=== PATIENT | female | born 1990 | race Hispanic/Latino ===

== ENCOUNTER 2018-04-09 17:31 | Inpatient (IN) | payer MEDICAID ==
[~2018-04-09] VITALS: Ht 162.6 cm; Wt 75.1 kg
[2018-04-09] MEDS ORDERED: SODIUM CHLORIDE 0.9% 1000ML 2,000 ML IV ONE (17:49)
[2018-04-09] MEDS ORDERED: MEROPENEM 1 GM VIAL ONE (17:49)
[2018-04-09 18:15] LABS: BASOPHILS % (AUTO) 0.2 % (0.0-5.0); EOSINOPHILS % (AUTO) 0.1 % (0.0-8.0); HEMATOCRIT 38.3 % (36-48); LYMPHOCYTES % (AUTO) 11.1 % (21.0-51.0); MEAN CORPUSCULAR HEMOGLOBIN 31.8 pg (27.0-33.0); MEAN CORPUSCULAR HGB CONC 34.6 g/dL (32.0-36.0); MONOCYTES % (AUTO) 11.9 % (3.0-13.0); NEUTROPHILS % (AUTO) 76.7 % (40.0-77.0); PLATELET COUNT (AUTO) 179 K/uL (130-400); RED BLOOD CELL COUNT(AUTO) 4.16 MIL/uL (4.00-5.50); WHITE BLOOD COUNT (AUTO) 14.8 K/uL (4.8-10.8)
[2018-04-09 18:24] LABS: INR 0.99 (0.85-1.15); PARTIAL THROMBOPLASTIN TIME 30.3 SEC (26.3-35.5); PROTHROMBIN TIME 10.4 SEC (9.6-11.6)
[2018-04-09 18:29] LABS: APPEARANCE,URINE Turbid (CLEAR); BILIRUBIN,URINE Negative (NEGATIVE); COLOR,URINE Dark Yellow (YELLOW); GLUCOSE, URINE (UA) Negative (NEGATIVE); KETONES,URINE Trace mg/dL (NEGATIVE); LEUKOCYTE ESTERASE ,URINE Moderate (NEGATIVE); NITRATE,URINE Negative (NEGATIVE); OCCULT BLOOD,URINE Moderate (NEGATIVE); PH,URINE 5.5 (5.0-8.0); PROTEIN,URINE POS 2+ (NEGATIVE)
[2018-04-09 18:41] LABS: ALANINE AMINOTRANSFERASE 20 U/L (12-78); ALBUMIN 3.4 g/dL (3.5-5.0); ASPARTATE AMINOTRANSFERASE 15 U/L (10-37); BILIRUBIN,TOTAL 1.3 mg/dL (0.2-1.0); CARBON DIOXIDE 26 mmol/L (21-32); CHLORIDE 101 mmol/L (101-111); CREATINE KINASE MB < 0.5 ng/mL (0.5-3.6); CREATINE KINASE, TOTAL 52 U/L (21-232); CREATININE 0.9 mg/dL (0.5-1.5); GLOMERULAR FILTR. RATE CALC 79 mL/min (>60); GLUCOSE,RANDOM 114 mg/dL (70-105); MYOGLOBIN 30 ng/mL (10-92); SODIUM SERUM 137 mmol/L (136-145); TOTAL PROTEIN, SERUM 7.6 g/dL (6.0-8.3); TROPONIN I < 0.04 ng/mL (0.00-0.06); UREA NITROGEN, BLOOD 10 mg/dL (7-18)
[2018-04-09 18:44] LABS: POTASSIUM 2.8 mmol/L (3.5-5.1)
[2018-04-09 18:53] LABS: BACTERIA,URINE Moderate /HPF (None Seen); RBC,URINE None Seen /HPF (0-1); SQUAMOUS EPITHELIAL CELL,UR 0-2 /HPF (0-2); WBC,URINE 51-100 /HPF (0-1)
[2018-04-09] MEDS ORDERED: ACETAMINOPHEN EXTRA STRENGTH 500 MG TABLET ONE (19:46)
[2018-04-09] MEDS ORDERED: CEFTRIAXONE SODIUM 1 GM ONE (19:49)
[2018-04-09] MEDS ORDERED: SODIUM CHLORIDE 0.9% 1000ML 1,000 ML IV ONE (20:04)
[2018-04-09] MEDS ORDERED: POTASSIUM BICARB/CIT AC 25 MEQ TABLET.EFF ONE (20:11)
[2018-04-10] VITALS (7 sets, daily range): BP systolic 93–118; BP diastolic 49–72
[2018-04-10] MEDS ORDERED: ONDANSETRON HCL MDV 20ML 2 MG/ML VIAL IV PRN
[2018-04-10] MEDS ORDERED: POTASSIUM CHLORIDE 20MEQ/100ML 100 ML IV PRN
[2018-04-10] MEDS ORDERED: POTASSIUM CHLORIDE 10% ELIXIR 20 MEQ/15 ML UDCUP PO PRN
[2018-04-10] MEDS ORDERED: MORPHINE SULFATE 2 MG/ML 1ML SYG IV PRN
[2018-04-10] MEDS ORDERED: CEFTRIAXONE 1GM/D5W 50ML 50 ML IV SCH
[2018-04-10] MEDS ORDERED: LIDOCAINE HCL-MPF 1% 2ML VIAL IVP PRN
[2018-04-10 05:45] LABS: MEAN CORPUSCULAR HEMOGLOBIN 31.9 pg (27.0-33.0); MEAN CORPUSCULAR HGB CONC 34.9 g/dL (32.0-36.0); MEAN CORPUSCULAR VOLUME 91.5 fL (79-99); PLATELET COUNT (AUTO) 151 K/uL (130-400); RED BLOOD CELL COUNT(AUTO) 3.71 MIL/uL (4.00-5.50)
[2018-04-10 05:54] LABS: CREATININE 0.7 mg/dL (0.5-1.5); POTASSIUM 3.3 mmol/L (3.5-5.1)
[2018-04-10] MEDS: ACETAMINOPHEN 325 MG TAB PO PRN ×3 (05:56→18:35)
[2018-04-10] MEDS: SODIUM CHLORIDE 0.9% 1000ML 1,000 ML IV SCH ×3 (05:57→20:20)
[2018-04-10] MEDS: FAMOTIDINE 20MG TAB 20 MG TAB PO SCH ×2 (08:01→20:16)
[2018-04-10] MEDS: POTASSIUM CHLORIDE 20 MEQ ERTAB PO PRN ×3 (08:02→12:43)
[2018-04-10] MEDS: CEFTRIAXONE SODIUM 1 GM IVP SCH (08:02)
[2018-04-10 10:21] LABS: BASOPHILS % (AUTO) 0.2 % (0.0-5.0); EOSINOPHILS % (AUTO) 0.3 % (0.0-8.0); HEMATOCRIT 34.3 % (36-48); LYMPHOCYTES % (AUTO) 13.5 % (21.0-51.0); MEAN CORPUSCULAR HEMOGLOBIN 31.5 pg (27.0-33.0); MEAN CORPUSCULAR HGB CONC 33.9 g/dL (32.0-36.0); MEAN CORPUSCULAR VOLUME 92.9 fL (79-99); MONOCYTES % (AUTO) 14.4 % (3.0-13.0); NEUTROPHILS % (AUTO) 71.6 % (40.0-77.0); PLATELET COUNT (AUTO) 151 K/uL (130-400); RED BLOOD CELL COUNT(AUTO) 3.69 MIL/uL (4.00-5.50); RED CELL DISTRIBUTION WIDTH 13.2 % (11.0-15.5); WHITE BLOOD COUNT (AUTO) 9.9 K/uL (4.8-10.8)
[2018-04-10] MEDS ORDERED: IOPAMIDOL-370 100 ML VIAL IV ONE (14:58)
[2018-04-11 04:00] VITALS: BP 104/69
[2018-04-11] MEDS: SODIUM CHLORIDE 0.9% 1000ML 1,000 ML IV SCH (05:28)
[2018-04-11] MEDS: ACETAMINOPHEN 325 MG TAB PO PRN ×2 (05:28→18:43)
[2018-04-11 05:47] LABS: HEMATOCRIT 35.3 % (36-48); MEAN CORPUSCULAR HEMOGLOBIN 32.1 pg (27.0-33.0); MEAN CORPUSCULAR HGB CONC 34.8 g/dL (32.0-36.0); MEAN CORPUSCULAR VOLUME 92.1 fL (79-99); PLATELET COUNT (AUTO) 172 K/uL (130-400); RED BLOOD CELL COUNT(AUTO) 3.83 MIL/uL (4.00-5.50); WHITE BLOOD COUNT (AUTO) 7.6 K/uL (4.8-10.8)
[2018-04-11 05:50] LABS: CREATININE 0.8 mg/dL (0.5-1.5); POTASSIUM 3.5 mmol/L (3.5-5.1)
[2018-04-11] MEDS: POTASSIUM CHLORIDE 20 MEQ ERTAB PO PRN ×2 (06:06→08:36)
[2018-04-11 08:21] VITALS: BP 93/53
[2018-04-11] MEDS: CEFTRIAXONE SODIUM 1 GM IVP SCH (08:36)
[2018-04-11] MEDS: FAMOTIDINE 20MG TAB 20 MG TAB PO SCH ×2 (08:36→19:57)
[2018-04-11 12:08] VITALS: BP 100/58
[2018-04-11 16:33] VITALS: BP 99/64
[2018-04-11 19:25] VITALS: BP 99/62
[2018-04-11 23:10] VITALS: BP 105/73
[2018-04-12 03:50] VITALS: BP 99/67
[2018-04-12 05:03] LABS: CREATININE 0.6 mg/dL (0.5-1.5); POTASSIUM 3.8 mmol/L (3.5-5.1)
[2018-04-12 08:02] VITALS: BP 96/59
[2018-04-12] MEDS ORDERED: LEVOFLOXACIN 500 MG/D5W 100 ML 100 ML IV SCH (09:00)
[2018-04-12] MEDS ORDERED: ENOXAPARIN SODIUM 40 MG/0.4 ML SYRINGE SQ SCH (09:00)
[2018-04-12] MEDS: FAMOTIDINE 20MG TAB 20 MG TAB PO SCH (09:03)
[2018-04-12] MEDS ORDERED: LEVO500T2 PO (09:43)
== END 2018-04-12 12:01 | disposition home or self-care (01) | DRG 720 ==
LOC: EDH 17:31 → OBSVTOIN 17:32 → EDHIP 17:32 → 4AH 04-10 01:17
PROVIDERS: ADMIT Internal Medicine; ATTEND Internal Medicine
DX: A41.9 Sepsis, unspecified organism (principal); N31.9 Neuromuscular dysfunction of bladder, unspecified; E87.6 Hypokalemia; N39.0 Urinary tract infection, site not specified; R19.7 Diarrhea, unspecified; Q05.9 Spina bifida, unspecified; B96.1 Klebsiella pneumoniae [K. pneumoniae] as the cause of diseases classified elsewhere; B96.89 Other specified bacterial agents as the cause of diseases classified elsewhere
CPT/HCPCS: 36415; 71045; 71275; 74176; 80048; 80053; 81001; 81025; 82550; 82553; 83605; 83874; 84484; 85025; 85027; 85610; 85730; 87040; 87088; 87186; 93005; A4218; J0696; J1650; J1956; J2185; J7030; Q9967

== ENCOUNTER 2019-12-06 23:19 | Emergency (ER) | payer MEDICAID ==
[~2019-12-06 23:19] MED LIST: LEVO500T2 PO
[2019-12-06] MEDS ORDERED: ACETAMINOPHEN EXTRA STRENGTH 500 MG TABLET ONE (23:58)
[2019-12-06] MEDS ORDERED: ONDANSETRON HCL 4 MG/2 ML VIAL ONE (23:58)
[2019-12-06] MEDS ORDERED: SODIUM CHLORIDE 0.9% 1000ML 1,000 ML IV ONE (23:58)
[2019-12-07 00:13] LABS: APPEARANCE,URINE Clear (CLEAR); BILIRUBIN,URINE Negative (NEGATIVE); COLOR,URINE Yellow (YELLOW); GLUCOSE, URINE (UA) Negative (NEGATIVE); KETONES,URINE Trace mg/dL (NEGATIVE); LEUKOCYTE ESTERASE ,URINE Small (NEGATIVE); NITRATE,URINE Positive (NEGATIVE); OCCULT BLOOD,URINE Trace (NEGATIVE); PH,URINE 5.5 (5.0-8.0); PROTEIN,URINE Trace mg/dL (NEGATIVE)
[2019-12-07 00:14] LABS: HCG,QUAL RESULT NEGATIVE (NEGATIVE)
[2019-12-07] MEDS ORDERED: MAG HYDROX/AL HYDROX/SIMETH ES 30 ML SUSP UDCUP ONE (00:45)
[2019-12-07] MEDS ORDERED: LIDOCAINE HCL 2% VISCOUS 15 ML UDCUP ONE (00:45)
[2019-12-07] MEDS ORDERED: KETOROLAC TROMETHAMINE 15MG/ML ONE (00:45)
[2019-12-07 00:46] LABS: BACTERIA,URINE Many /HPF (None Seen); RBC,URINE 0-1 /HPF (0-1)
[2019-12-07] MEDS ORDERED: CEFTRIAXONE SODIUM 1 GM ONE (01:12)
== END 2019-12-07 01:53 | disposition home or self-care (01) ==
LOC: EDH 23:19
DX: J11.1 Influenza due to unidentified influenza virus with other respiratory manifestations (principal); R82.71 Bacteriuria; R11.10 Vomiting, unspecified; Z91.040 Latex allergy status; Z88.8 Allergy status to other drugs, medicaments and biological substances
CPT/HCPCS: 36415; 71045; 80053; 81001; 81025; 82550; 83605; 83874; 84145; 84484; 85025; 85610; 85730; 87040; 87077; 87088; 87186; 87804 ×2; 87880; 93005; 96361; 96374; 96375; 99285; J0696; J1885; J2405; J7030

== ENCOUNTER 2023-10-07 23:23 | Emergency (ER) | payer MEDICAID, OTHER ==
[~2023-10-07] VITALS: Ht 162.6 cm; Wt 77.1 kg
[2023-10-08 00:01] LABS: RAPID GROUP A STREP negative (NEGATIVE)
[2023-10-08 00:03] LABS: SARS-CoV-2, RNA, NAAT NEGATIVE SARS CoV-2 (NEGATIVE)
[2023-10-08 00:12] LABS: INFLUENZA TYPE A Negative For Type A (NEGATIVE); INFLUENZA TYPE B Negative For Type B (NEGATIVE)
[2023-10-08 00:23] LABS: BASOPHILS # (AUTO) 0.03 K/uL (0.00-0.20); BASOPHILS % (AUTO) 0.6 % (0.0-5.0); EOSINOPHILS # (AUTO) 0.14 K/uL (0.00-0.70); EOSINOPHILS % (AUTO) 2.7 % (0.0-8.0); HEMATOCRIT 44.2 % (36-48); IMMATURE GRANULOCYTE ABSOLUTE 0.02 K/uL (0-1); LYMPHOCYTES # (AUTO) 1.4 K/uL (1.0-4.8); MEAN CORPUSCULAR HEMOGLOBIN 31.5 pg (27.0-33.0); MEAN CORPUSCULAR HGB CONC 33.7 g/dL (32.0-36.0); MEAN CORPUSCULAR VOLUME 93.4 fL (79-99); MONOCYTES # (AUTO) 0.7 K/uL (0.1-1.0); MONOCYTES % (AUTO) 12.7 % (3.0-13.0); NEUTROPHILS # (AUTO) 2.9 K/uL (1.8-7.7); NEUTROPHILS % (AUTO) 56.6 % (40.0-77.0); PLATELET COUNT (AUTO) 195 K/uL (130-400); RED BLOOD CELL COUNT(AUTO) 4.73 MIL/uL (4.00-5.50); RED CELL DISTRIBUTION WIDTH 12.8 % (11.0-15.5); WHITE BLOOD COUNT (AUTO) 5.2 K/uL (4.8-10.8)
[2023-10-08 00:33] LABS: CREATININE 0.6 mg/dL (0.5-1.5); POTASSIUM 3.5 mmol/L (3.5-5.1)
[2023-10-08 00:37] LABS: ALBUMIN 3.5 g/dL (3.5-5.0); BILIRUBIN,TOTAL 0.6 mg/dL (0.2-1.0); TOTAL PROTEIN, SERUM 7.5 g/dL (6.0-8.3)
[2023-10-08] MEDS ORDERED: ACETAMINOPHEN 500 MG TABLET PO ONE (02:00)
[2023-10-08 02:08] LABS: APPEARANCE,URINE CLOUDY (CLEAR); BILIRUBIN,URINE NEGATIVE (NEGATIVE); COLOR,URINE YELLOW (YELLOW); GLUCOSE, URINE (UA) NEGATIVE (NEGATIVE); KETONES,URINE 5 mg/dL (NEGATIVE); LEUKOCYTE ESTERASE ,URINE 250 Leu/uL (NEGATIVE); NITRATE,URINE 2+ (NEGATIVE); OCCULT BLOOD,URINE NEGATIVE (NEGATIVE); PROTEIN,URINE 50 mg/dL (NEGATIVE); UROBILINOGEN,URINE 0.2 mg/dL (0.2-1.0)
[2023-10-08 02:18] LABS: ADD UA MICROSCOPIC YES
[2023-10-08 02:21] LABS: BACTERIA,URINE MOD /HPF (None Seen); MUCUS,URINE RARE LPF (None Seen); SQUAMOUS EPITHELIAL CELL,UR RARE /HPF (0-2); TRANSITIONAL EPI CELLS,URINE RARE /HPF (None Seen); WBC,URINE 51-100 /HPF (0-1)
[2023-10-08 03:13] VITALS: BP 114/60; PULSE 98; RESP 18; O2SAT 98
[2023-10-08] MEDS ORDERED: CEFU500T67 PO (03:57)
[2023-10-08] MEDS ORDERED: IBUP-1493 PO (03:57)
== END 2023-10-08 04:18 | disposition home or self-care (01) ==
LOC: EDH 23:23
DX: N39.0 Urinary tract infection, site not specified (principal); M54.6 Pain in thoracic spine; Z88.1 Allergy status to other antibiotic agents; Z99.3 Dependence on wheelchair; Z20.822 Contact with and (suspected) exposure to COVID-19
CPT/HCPCS: 99285; 87635; 82550; 84484; 80053; 85025; 87040 ×2; 87077; 87088; 87186; 87880; 87804 ×2; 83605; 81001; 36415; 71045; 93005; C9803

== ENCOUNTER 2025-08-06 15:12 | Emergency (ER) | payer OTHER ==
[~2025-08-06] VITALS: Ht 162.6 cm; Wt 77.1 kg
[~2025-08-06 15:12] MED LIST changes: +CEFU500T67 PO; +IBUP-1493 PO
--- NOTE | 2025-08-06 15:30 | ERN ---
ED Note History of Present Illness Stated Complaint: ABDOMIUNAL PAIN Chief Complaint: Abdominal Pain Time Seen by MD: 15:14 Dictation: PATIENT IS A 35-YEAR-OLD FEMALE COMING IN WITH HER MOTHER WITH COMPLAINTS OF HAVING RIGHT UPPER QUADRANT EPIGASTRIC PAIN THAT RADIATES TO THE LEFT FLANK ONSET THIS MORNING. SHE HAS HAD NAUSEA WITHOUT VOMITING NO FEVER NO CHILLS NO CHANGE IN URINATION. SHE STATES SHE STILL HAS A GALLBLADDER. STATES SHE HAS HAD PAIN SIMILAR TO THIS IN THE PAST HOWEVER SHE WOULD VOMIT AND THEN IT GOT BETTER SO SHE NEVER WENT TO A DOCTOR. Allergies: Coded Allergies: latex (Unverified Allergy, Unknown, UNKNOWN, 04/10/18) HAPPENED WHEN YOUNG nitrofurantoin (Unverified Allergy, Unknown, SHORTNESS OF BREATH, 04/10/18) Home Meds Active Scripts Ibuprofen (Motrin/Advil) 800 Mg Tab, 800 MG PO TID, #30 TAB Prov:TOMAS JOHNSON MD 10/08/23 Cefuroxime Axetil (Cefuroxime) 500 Mg Tablet, 500 MG PO BID, #20 TAB Prov:TOMAS JOHNSON MD 10/08/23 Levofloxacin (Levaquin) 500 Mg Tablet, 500 MG PO DAILY, #10 TAB Prov:BEV ASH MD 04/12/18 Past Medical History Past Medical History: Other Additional Past Medical Hx: SPINA BIFIDA Surgical History: Other Surgical History Other: BACK, BLADDER, BILATERAL FEET, BILATERAL KNEE Family History: Negative Social History: Negative RN Note Reviewed/Agreed w/PFSH: Yes Review of System Dictation CONSTITUTIONAL: NEGATIVE EXCEPT FOR HPI HEAD/FACE: NEGATIVE EXCEPT FOR HPI EENT: NEGATIVE EXCEPT FOR HPI RESPIRATORY: NEGATIVE EXCEPT FOR HPI GASTROINTESTINAL/ABDOMINAL: NEGATIVE EXCEPT FOR HPI RIGHT UPPER QUADRANT AND EPIGASTRIC PAIN THAT RADIATES TO LEFT FLANK NAUSEA GENITOURINARY: NEGATIVE EXCEPT FOR HPI MUSCULOSKELETAL: NEGATIVE EXCEPT FOR HPI INTEGUMENTARY: NEGATIVE EXCEPT FOR HPI NEUROLOGICAL/PSYCH: NEGATIVE EXCEPT FOR HPI HEMATOLOGIC/LYMPHATIC: NEGATIVE EXCEPT FOR HPI ALL SYSTEMS NEGATIVE, EXCEPT NOTED ABOVE. 13 POINT REVIEW OF SYSTEMS ASSESSED AND ALL NEGATIVE EXCEPT FOR ABOVE. Initial Vital Sign VS Vital Signs Date Time Temp Pulse Resp B/P (MAP) Pulse Ox O2 Delivery O2 Flow Rate FiO2 08/06/25 15:14 98.2 73 18 136/89 99 Room Air 08/06/25 17:00 0 21 Physical Exam Dictation VITAL SIGNS REVIEWED GENERAL APPEARANCE: ALERT, ORIENTED X 3, MODERATE ACUTE DISTRESS, WELL DEVELOPED, NOURISHED. OBESE HEAD AND FACE: NON-TRAUMATIC. EYES: PERRL, PINK CONJUNCTIVAS, EYELID NO TRAUMA, ANTERIOR CHAMBER WITH ARCUS SENILIS. EARS: PINNAS INTACT AND NO SIGNS OF TRAUMA OR ERYTHEMA EAR CANALS CLEAR AND NO DISCHARGE TM NO ERYTHEMA NOSE: NO DISCHARGE, NO BLEEDING. OROPHARYNX: MOUTH NORMAL, TONGUE PINK, PHARYNX CLEAR,NO ERYTHEMA, TONSILS NO EXUDATES, NO ABSCESSES NOTED, MUCOUS MEMBRANE MOIST NECK: SUPPLE, NON-TENDER, NO THYROMEGALY, NO MASSES, NO JVD, NO BRUITS BREAST:DEFERRED CHEST:NO TENDERNESS, NO CREPITUS, NO PARADOXICAL MOVEMENT, NO RETRACTIONS LUNGS:CLEAR, WELL-VENTILATED, SYMMETRIC, NO RALES, NO WHEEZING, NO RHONCHI, NO STRIDOR, GOOD BREATH SOUNDS BILATERALLY HEART: REGULAR RATE, REGULAR RHYTHM, NO MURMUR, NO GALLOPS VASCULAR: NO PERIPHERAL EDEMA, ABDOMEN: SOFT, POSITIVE BOWEL SOUNDS, NONDISTENDED, NO GUARDING, MILD EPIGASTRIC TENDERNESS NO IRWIN'S, NO REBOUND, NO MASSES NO HEPATOMEGALY, NO SPLENOMEGALY, NO IRWIN'S SIGN, NO HERNIAS. RECTAL: DEFERRED GENITAL: DEFERRED NEUROLOGICAL: NORMAL SPEECH, MOTOR FUNCTION INTACT, SENSORY FUNCTION INTACT MUSCULOSKELETAL: NECK NONTENDER, FULL RANGE OF MOTION, BACK NONTENDER, FULL RANGE OF MOTION, EXTREMITIES: NONTENDER, FULL RANGE OF MOTION SKIN: COLOR PINK, DRY, NO TURGOR, NO RASH, NO LACERATIONS, NO ABRASIONS, NO CONTUSIONS. LYMPHATIC: DEFERRED Results (Laboratory/Radiology) Laboratory/Radiology Laboratory Tests Test 08/06/25 15:48 08/06/25 17:33 White Blood Count 9.4 K/uL (4.8-10.8) Red Blood Count 4.63 MIL/uL (4.00-5.50) Hemoglobin 14.6 g/dL (12.0-16.0) Hematocrit 43.0 % (36-48) Mean Corpuscular Volume 92.9 fL (79-99) Mean Corpuscular Hemoglobin 31.5 pg (27.0-33.0) Mean Corpuscular Hemoglobin Concent 34.0 g/dL (32.0-36.0) Red Cell Distribution Width 12.6 % (11.0-15.5) Platelet Count 257 K/uL (130-400) Mean Platelet Volume 10.3 fL (7.5-10.5) Immature Granulocyte % (Auto) 0.6 % (0-1) Neutrophils (%) (Auto) 66.6 % (40.0-77.0) Lymphocytes (%) (Auto) 22.2 % (21.0-51.0) Monocytes (%) (Auto) 7.2 % (3.0-13.0) Eosinophils (%) (Auto) 2.8 % (0.0-8.0) Basophils (%) (Auto) 0.6 % (0.0-5.0) Neutrophils # (Auto) 6.3 K/uL (1.8-7.7) Lymphocytes # (Auto) 2.1 K/uL (1.0-4.8) Monocytes # (Auto) 0.7 K/uL (0.1-1.0) Eosinophils # (Auto) 0.26 K/uL (0.00-0.70) Basophils # (Auto) 0.06 K/uL (0.00-0.20) Absolute Immature Granulocyte (auto 0.06 K/uL (0-1) Nucleated Red Blood Cells 0.0 % (0.0-0.19) Sodium Level 136 mmol/L (136-145) Potassium Level 3.8 mmol/L (3.5-5.1) Chloride Level 101 mmol/L (101-111) Carbon Dioxide Level 27 mmol/L (21-32) Blood Urea Nitrogen 12 mg/dL (7-18) Creatinine 0.7 mg/dL (0.5-1.0) Glomerular Filtration Rate Calc 115 mL/min (>90) Random Glucose 124 mg/dL (70-105) H Total Calcium 9.7 mg/dL (8.5-10.1) Lipase 54 U/L (16-77) Urine Color LIGHT-YELLOW (YELLOW) Urine Appearance CLOUDY (CLEAR) H Urine pH 5.5 (5.0-8.0) Urine Specific Mobile 1.018 (1.001-1.031) Urine Protein 10 mg/dL (NEGATIVE) H Urine Glucose (UA) NEGATIVE mg/dL (NEGATIVE) Urine Ketones 5 mg/dL (NEGATIVE) H Urine Occult Blood MODERATE (NEGATIVE) H Urine Nitrate 1+ (NEGATIVE) H Urine Bilirubin NEGATIVE mg/dL (NEGATIVE) Urine Urobilinogen 0.2 mg/dL (0.2-1.0) Urine Leukocyte Esterase 75 Leana/uL (NEGATIVE) H Urine RBC 2-5 /HPF (0-1) H Urine WBC 11-25 /HPF (0-1) H Urine Squamous Epithelial Cells FEW /HPF (0-2) Urine Bacteria MOD /HPF (None Seen) Urine HCG, Qualitative NEGATIVE (NEGATIVE) M: US Abdomen, Right Upper Quadrant. CLINICAL HISTORY: RIGHT UPPER QUADRANT PAIN TECHNIQUE: Right upper quadrant sonography performed with image documentation. COMPARISON: US/SD - US ABDOMINAL RUQ - 12/17/13 04:37 EST FINDINGS: LIVER: Borderline hepatomegaly with the liver measuring 14.9 cm. Increased echogenicity consistent with fatty infiltration. No focal hepatic lesion. GALLBLADDER: A 2 cm calculus is noted within the gallbladder lumen. Gallbladder wall thickness measures 2.2 mm. No pericholecystic fluid. COMMON BILE DUCT: Common bile duct measures 0.5 cm, within normal limits. PANCREAS: Pancreatic head and body appear within normal limits. Pancreatic tail is obscured by bowel gas. RIGHT KIDNEY: Right kidney measures 8.7 x 3.0 x 3.5 cm. The kidney demonstrates heterogeneous lobulated contours. No hydronephrosis. Previously seen cortical cyst with echogenic focus is not well visualised on this study. IMPRESSION: 1. 2 cm choelithiasis with out cholecystitis. 2. Borderline hepatomegaly (14.9 cm) with fatty infiltration. 3. Right kidney with heterogeneous lobulated contours. /[facility] Labs Reviewed?: Yes ED Course ED Course Orders Procedure Category Date Status Time Cbc With Differential LAB 08/06/25 Complete 15:28 ,Urine Test LAB 08/06/25 Complete 15:28 Urinalysis Profile LAB 08/06/25 Complete 15:28 0.9%Nacl 1000ml (Ns PHA 08/06/25 Complete 1000ml) 15:30 Morphine 2mg Syg PHA 08/06/25 Complete (Morphine 2mg Syg) 15:30 Ondansetron 4mg Inj PHA 08/06/25 Complete (Zofran 4mg Inj) 15:30 Lipase LAB 08/06/25 Complete 15:28 Basic Metabolic Panel LAB 08/06/25 Complete 15:28 Us Abdominal Ruq\Ltd US 08/06/25 Resulted 17:07 Morphine 4mg Syg PHA 08/06/25 Complete (Morphine 4mg Syg) 17:12 Culture Urine AGUSTÍN 08/06/25 In Process 17:43 Amox/Clav 875/125mg PHA 08/06/25 Complete Tab (Augmentin 875-1 18:00 Current Medications Medications (Trade) Dose Ordered Sig/Taylor Route PRN Reason Start Time Stop Time Status Last Admin Dose Admin Amoxicillin/ Clavulanate Potassium (Augmentin 875-125 Tablet) 1 each ONCE ONCE PO 08/06/25 18:00 08/06/25 18:02 DC 08/06/25 18:27 Morphine Sulfate (morPHINE 2MG SYG) 2 mg ONCE ONCE IVP 08/06/25 15:30 08/06/25 15:31 DC Morphine Sulfate (morPHINE 4MG SYG) 4 mg STK-MED ONCE .ROUTE 08/06/25 17:12 08/06/25 17:12 DC 08/06/25 17:32 Ondansetron HCl (zoFRAN 4MG INJ) 4 mg ONCE ONCE IVP 08/06/25 15:30 08/06/25 15:31 DC 08/06/25 17:31 Sodium Chloride 1,000 ml @ 0 mls/hr ONCE ONCE IV 08/06/25 15:30 08/06/25 15:31 DC 08/06/25 17:31 Vital Signs Date Time Temp Pulse Resp B/P (MAP) Pulse Ox O2 Delivery O2 Flow Rate FiO2 08/06/25 17:00 98.2 70 17 132/88 99 Room Air* 0 21 08/06/25 15:14 98.2 73 18 136/89 99 Room Air Medical Decision Making MDM MDM: DIFFERENTIAL DIAGNOSIS: UTI/PYELONEPHRITIS/CHOLELITHIASIS/CHOLEDOCHOLITHIASIS/FATTY LIVER/ELECTROLYTE IMBALANCE/DEHYDRATION RATIONALE: TESTS CONSIDERED AND ORDERED SECONDARY TO SHARED DECISION MAKING INCLUDE: LABS/ULTRASOUND PREVIOUS OUTSIDE RECORDS REVIEWED: OLD ER VISITS. RISK OF COMPLICATION AND/OR MORBIDITY OR MORTALITY OF PATIENT MANAGEMENT: NONE MEDICATIONS-PER MEDICATION RECONCILIATION NEED FOR HOSPITALIZATION: PATIENT DOES NOT MEET CRITERIA FOR HOSPITALIZATION. NONE NEED FOR EMERGENCY MAJOR/MINOR SURGERY: NO THERE ARE NO SOCIAL CONCERNS WITH THIS PATIENT. PRESCRIPTION DRUG MANAGEMENT BENTYL PRESCRIPTIONS WILL INCLUDE SYMPTOMATIC CARE PATIENT'S PRIOR EXTERNAL MEDICAL RECORDS FROM OTHER ER VISITS WERE REVIEWED BY ME INDICATED. PRIOR TESTING AND RESULTS FROM PREVIOUS VISITS WERE REVIEWED. PRIOR TESTS WERE TAKEN INTO ACCOUNT WITH MEDICAL DECISION MAKING AND RESOURCE UTILIZATION, INDEPENDENT HISTORIAN/HISTORIANS WERE USED TO OBTAIN COMPLETE MEDICAL HISTORY. I INDEPENDENTLY INTERPRETED THE TEST THAT WERE PERFORMED, RESULTS WERE REVIEWED BY ME AND CONSIDERED FINDINGS ON RADIOLOGY IF ORDERED. MEDICAL MANAGEMENT AND EXAMINATION INTERPRETATION DISCUSSIONS WERE HAD BY ME WITH OTHER QUALIFIED HEALTHCARE PROFESSIONALS INDICATED FOR THE PATIENT'S CARE. DX & DISP Disposition: Discharge Departure Impression: Primary Impression: Biliary colic symptom Additional Impressions: Fatty liver, Hyperglycemia Condition: Stable Scripts Dicyclomine HCl (Bentyl) 20 Mg Tab 20 MG PO Q6HPRN for ABDOMINAL PAIN, #30 TAB Prov: KEEGAN NAZARIO TILE HELPER 08/06/25 Additional Instructions: FOLLOW-UP WITH PRIMARY CARE PROVIDER IN 1 TO 2 DAYS. TAKE MEDICATIONS DIRECTED HERE IN THE EMERGENCY ROOM. OKAY TO CONTINUE HOME MEDICATIONS UNLESS OTHERWISE DISCUSSED DURING YOUR VISIT IN THE EMERGENCY ROOM TODAY. RETURN TO YOUR NEAREST EMERGENCY ROOM IF SYMPTOMS WORSEN OR IF THERE IS NO IMPROVEMENT. CALL 911 IF YOU NEED IMMEDIATE ASSISTANCE. TAKE TYLENOL OR MOTRIN [id number] NEEDED AND IF NO CONTRAINDICATIONS ARE PRESENT. INCREASE ORAL HYDRATION. A WOUND CULTURE OR URINE CULTURE WAS ORDERED HERE IN THE EMERGENCY ROOM DEPARTMENT PLEASE FOLLOW-UP WITH PRIMARY CARE PROVIDER AND ADVISE THEM TO GET REPEAT PORTS FROM OUR FACILITY. IF YOU HAD ANY NAI WRAP/SPLINTS THAT WERE APPLIED HERE, PLEASE DO NOT REMOVE THEM UNTIL YOU SEE YOUR PRIMARY CARE OR SPECIALTY. FOLLOW A LOW-FAT DIET. TAKE BENTYL DIRECTED FOR ABDOMINAL PAIN. SEE YOUR PRIMARY CARE DOCTOR FOR FOLLOW UP AND MANAGEMENT. Referrals: CRISELDA BURKS MD (PCP) Time of Disposition: 18:41 I have reviewed the case, and I agree with, Diagnosis and Plan KEEGAN NAZARIO NP Aug 06, 2025 15:30
[2025-08-06 15:54] LABS: IMMATURE GRANULOCYTE ABSOLUTE 0.06 K/uL (0-1); NUCLEATED RED BLOOD CELLS 0.0 % (0.0-0.19); PLATELET COUNT (AUTO) 257 K/uL (130-400); RED BLOOD CELL COUNT(AUTO) 4.63 MIL/uL (4.00-5.50); RED CELL DISTRIBUTION WIDTH 12.6 % (11.0-15.5); WHITE BLOOD COUNT (AUTO) 9.4 K/uL (4.8-10.8)
[2025-08-06 16:03] LABS: CREATININE 0.7 mg/dL (0.5-1.0); GLOMERULAR FILTR. RATE CALC 115.0 mL/min (>90); GLUCOSE,RANDOM 124.0 mg/dL (70-105); SODIUM SERUM 136.0 mmol/L (136-145); UREA NITROGEN, BLOOD 12.0 mg/dL (7-18)
[2025-08-06] MEDS: 0.9%NACL 1000ML 1,000 ML IV ONE (17:31)
[2025-08-06 17:42] LABS: ADD UA MICROSCOPIC YES; APPEARANCE,URINE CLOUDY (CLEAR); GLUCOSE, URINE (UA) NEGATIVE (NEGATIVE); LEUKOCYTE ESTERASE ,URINE 75 Leu/uL (NEGATIVE); NITRATE,URINE 1+ (NEGATIVE); OCCULT BLOOD,URINE MODERATE (NEGATIVE)
[2025-08-06 17:44] LABS: SQUAMOUS EPITHELIAL CELL,UR FEW /HPF (0-2)
[2025-08-06 17:46] LABS: HCG,QUALITATIVE URINE NEGATIVE (NEGATIVE)
--- NOTE | 2025-08-06 18:25 | HMCIMG ---
EXAM: US Abdomen, Right Upper Quadrant. CLINICAL HISTORY: RIGHT UPPER QUADRANT PAIN TECHNIQUE: Right upper quadrant sonography performed with image documentation. COMPARISON: US/SD - US ABDOMINAL RUQ - 12/17/13 04:37 EST FINDINGS: LIVER: Borderline hepatomegaly with the liver measuring 14.9 cm. Increased echogenicity consistent with fatty infiltration. No focal hepatic lesion. GALLBLADDER: A 2 cm calculus is noted within the gallbladder lumen. Gallbladder wall thickness measures 2.2 mm. No pericholecystic fluid. COMMON BILE DUCT: Common bile duct measures 0.5 cm, within normal limits. PANCREAS: Pancreatic head and body appear within normal limits. Pancreatic tail is obscured by bowel gas. RIGHT KIDNEY: Right kidney measures 8.7 x 3.0 x 3.5 cm. The kidney demonstrates heterogeneous lobulated contours. No hydronephrosis. Previously seen cortical cyst with echogenic focus is not well visualised on this study. IMPRESSION: 1. 2 cm choelithiasis with out cholecystitis. 2. Borderline hepatomegaly (14.9 cm) with fatty infiltration. 3. Right kidney with heterogeneous lobulated contours. /[place]
[2025-08-06] MEDS: AMOX/CLAV 875/125MG TAB PO ONE (18:27)
[2025-08-06] MEDS ORDERED: DICY20TA2 PO (18:42)
[2025-08-06 18:45] VITALS: BP 136/86; PULSE 72; RESP 18; TEMP 98.2; O2SAT 99
== END 2025-08-06 18:53 | disposition home or self-care (01) ==
LOC: EDH 15:12
DX: K80.50 Calculus of bile duct without cholangitis or cholecystitis without obstruction (principal); K76.0 Fatty (change of) liver, not elsewhere classified; Z79.1 Long term (current) use of non-steroidal anti-inflammatories (NSAID); Z88.1 Allergy status to other antibiotic agents; Z91.040 Latex allergy status
CPT/HCPCS: 99284; 96374; 76705; 96361; 96375; 80048; 83690; 85025; 87086 ×2; 87186; 81001; 81025; 36415; J7030; J2405; J2270